=== PATIENT | male | born 1950 | race Caucasian/White ===

== ENCOUNTER → 2021-07-15 | Day surgery (SDC) | payer MEDICARE ==
[~2021-07-15] MED LIST: ALPRAZOLAM0.25 M1 PO; ATORVASTATIN CA20 MG PO; AVODART0.5 MG PO; FENTANYL CITRATE/PF 100MCG/2 ML INJ ONE; FEROSUL325 MG PO; LISINOPRIL-HCT1 EAC2; LORTAB 10 MG-3473 ML PO; SERTRALINE HCL100 MG PO; ZUPLENZ8 MG
[2021-07-15 13:50] VITALS: BP 107/65
== END | disposition home or self-care (01) ==
LOC: OR 10:24
PROVIDERS: ATTEND Internal Medicine Gastroenterology
DX: D64.9 Anemia, unspecified (principal); D12.4 Benign neoplasm of descending colon; K29.50 Unspecified chronic gastritis without bleeding; B96.81 Helicobacter pylori [H. pylori] as the cause of diseases classified elsewhere; K29.60 Other gastritis without bleeding; K26.9 Duodenal ulcer, unspecified as acute or chronic, without hemorrhage or perforation; K29.80 Duodenitis without bleeding; K57.30 Diverticulosis of large intestine without perforation or abscess without bleeding; K44.9 Diaphragmatic hernia without obstruction or gangrene; K59.00 Constipation, unspecified; K64.8 Other hemorrhoids; I10 Essential (primary) hypertension; H40.9 Unspecified glaucoma; M54.9 Dorsalgia, unspecified; E78.5 Hyperlipidemia, unspecified; F41.9 Anxiety disorder, unspecified; Z88.1 Allergy status to other antibiotic agents; Z01.812 Encounter for preprocedural laboratory examination; Z20.822 Contact with and (suspected) exposure to COVID-19
CPT/HCPCS: 43239; 45384; 82941; 88305; 88312; 93005; U0002; 45378; J3010